=== PATIENT | male | born 1990 | race Caucasian/White ===

== ENCOUNTER 2018-02-11 14:14 | Emergency (ER) | payer OTHER ==
[2018-02-11 14:32] VITALS: BP 169/90
--- NOTE | 2018-02-11 15:44 | ED Physician Documentation ---
History of Present Illness - Stated complaint Stated Complaint: RT KNEE PX - Chief complaint Chief Complaint: Ext Problem - History obtained from History obtained from: Patient - History of Present Illness Timing: Other (months) Pain level max: 8 Pain level now: 7 Quality: aching, dull Improved by: rest Worsened by: walking - Additonal information Additional information: Patient is a 27 year old male with R knee pain for the past several months. States has been to PT and has a neoprene knee brace. Is not wearing the brace. States knee hurting more today. Review of Systems Constitutional: denies: Fever, Chills GI: denies: Nausea, Vomiting, Diarrhea Musculoskeletal: denies: Neck pain, Back pain Neurologic: denies: Focal weakness, Numbness PD PAST MEDICAL HISTORY - Past Medical History Past Medical History: No - Past Surgical History Past Surgical History: No - Present Medications Home Medications: Ambulatory Orders Medication Instructions Recorded Confirmed No Known Home Medications [No 02/11/18 02/11/18 Known Home Medications] - Allergies Allergies/Adverse Reactions: Allergies Allergy/AdvReac Type Severity Reaction Status Date / Time Penicillins Allergy Unknown Verified 02/11/18 14:32 - Living Situation Living Situation: reports: With family Living Arrangement: reports: At home - Social History Does the pt have substance abuse?: No PD ED PE NORMAL - Vitals Vital signs reviewed: Yes - General General: Alert and oriented X 3, No acute distress - HEENT HEENT: Moist mucous membranes - Neck Neck: Supple, no meningeal sign - Cardiac Cardiac: RRR - Respiratory Respiratory: No respiratory distress, Clear bilaterally - Derm Derm: Warm and dry - Extremities Extremities: Other (R knee - ACL, LCL, PCL intact. mild MCL laxity. +ne test.) - Neuro Neuro: Alert and oriented X 3 Results - Vitals Vitals: Vital Signs - 24 hr 02/11/18 14:30 Temperature 36.9 C Heart Rate 100 Respiratory 20 Rate Blood Pressure 169/90 H O2 Saturation 98 Oxygen O2 Source Room air PD MEDICAL DECISION MAKING - ED course Complexity details: considered differential, d/w patient ED course: Patient is a 27-year-old male with an ongoing right knee injury. Is followed in [place] for this. He is here on vacation. Does not have his knee brace with him, therefore will place him back in a hinged knee brace. We will have him follow-up with his doctor for further care. Likely meniscal injury and possible MCL sprain. Patient counseled regarding signs and symptoms for which I believe and urgent re-evaluation would be necessary. Patient with good understanding of and agreement to plan and is comfortable going home at this time This document was made in part using voice recognition software. While efforts are made to proofread this document, sound alike and grammatical errors may occur. - Sepsis Event Vital Signs: Vital Signs - 24 hr 02/11/18 14:30 Temperature 36.9 C Heart Rate 100 Respiratory 20 Rate Blood Pressure 169/90 H O2 Saturation 98 Oxygen O2 Source Room air Departure - Departure Disposition: Home, Self Care Clinical Impression: Knee pain, right Qualifiers: Chronicity: acute Qualified Code(s): M25.561 - Pain in right knee Condition: Good Instructions: ED Meniscal Injury Knee Poss Follow-Up: your,doctor in 1 week [Other] Comments: Keep the brace on as much as possible. You should see an orthopedist when you return to [place]. You will likely need an MRI of the knee. Discharge Date/Time: 02/11/18 16:05
== END 2018-02-11 16:05 | disposition home or self-care (01) ==
LOC: ED 14:14
DX: M25.561 Pain in right knee (principal)
CPT/HCPCS: 99283